=== PATIENT | female | born 1940 | race Caucasian/White ===

== ENCOUNTER 2024-04-04 19:01 | Inpatient (IN) ==
--- NOTE | 2024-04-04 21:01 | Emergency Department Note ---
Impression & Plan Closed fracture of pubic ramus, Fall, Ambulatory dysfunction ED Provider Note NAME: LETY FRANZ AGE: 84 SEX: F : 1940 ARRIVES VIA: Walk-In INFORMANT: Patient, Daughter ED PROVIDER(S): Earle Browning MD CHIEF COMPLAINT: Fall, ambulatory dysfunction MEDICAL DECISION MAKING: Patient presents with the above. Patient may have a pubic ring fracture based on x-ray. CT of the hip and pelvis were ordered. After discussion with the patient's family were at bedside she does not believe the patient go home at this time. IV was established and blood work is obtained along with a screening chest x-ray in light of the patient's cough and episode of vomiting last week. While the patient states that she did hit her head last week as the patient does not have any head or neck pain and the fall occurred 4 days ago believe less likely to have clinically significant ICH. No obvious deformity to the head indicative of any skull fracture. Patient blood work shows a normal white count hemoglobin and platelet count. The patient's kidney function unremarkable but with prerenal azotemia. Patient's hip and pelvis x-ray does show right superior pubic rami fracture. Chest x-ray does show some congestion and possible edema. Hip and pelvis CT do show superior pubic rami fracture. Given the concern for ambulatory dysfunction I did speak the on-call hospitalist Dr. Braun and the patient was admitted to the medicine service. I did message on-call orthopedist Dr. Desai to make him aware. Discussion w/ other healthcare providers: Dr. Braun inpatient medicine service Dr. Desai orthopedics Prior /Outside records reviewed: None Differential diagnosis: Fracture, dislocation, contusion, strain, sprain, ICH, hemothorax, intra- abdominal injury, anemia among other causes were considered. Diagnostics, as interpreted by me: ECG: Normal sinus rhythm, rate 73, wide QRS with bundle branch block pattern, no obvious Sgarbossa criteria. Cardiac monitoring: An order was placed for continuous cardiac monitoring. The monitor shows a rate of 77 with sinus rhythm. Patient was placed on pulse oximetry Medical decision rules: None Imaging studies: I informally interpreted the patient's right hip and pelvis x-ray shows pubic rami fracture with formal report to follow. HPI: Patient presents with daughter at bedside due to concerns for pain to the right hip and groin area. Patient reportedly had a fall last as she may have missed stepped while navigating around a chair and then fell to her right side. Patient was able to get up and ambulate thereafter but in the coming days the patient has had worsening ambulatory dysfunction where she has required a walker. Patient does take Eliquis. Patient was reportedly seen the prior week on [facility] Thursday due to concerns for choking episode and vomiting. The patient reportedly did have CT of the abdomen pelvis and did receive IV fluids. Patient was discharged home. Patient developed a cough about 2 days later and was placed on a Z-Eben by her PCP. Patient former smoker last moving about 2 years ago. Patient states that since the fall patient has taken some occasional Advil with improvement in her pain. Patient states that is primarily to the hip and groin area. Patient also has some occasional right- sided rib pain. Patient believes that she struck her head at the time of the fall but has had no changes in mentation no head or neck pain. Patient reportedly does take Eliquis for known history of PE. PAST MEDICAL HISTORY: See Below PAST SURGICAL HISTORY: See Below SOCIAL HISTORY: See Below HOME MEDICATIONS: See Below ALLERGIES: See Below VITALS: See Below PHYSICAL EXAMINATION: GENERAL: NAD, non-toxic. Wearing glasses. EYE EXAM: Normal conjunctiva. PERRL, no anisocoria and EOM's grossly intact w/o pain. OROPHARYNX: Moist mucus membranes, grossly normal dentition. NECK: Trachea midline, no stridor. No midline C-spine TTP. LUNGS: Clear to auscultation. Normal chest wall mechanics. Chest: Reproducible right mid clavicular lower rib pain without step-offs or bruising. HEART: NSR, no MRG. ABDOMEN: Abdomen soft, non-tender, no masses, no rebound or guarding. BACK: No CVA TTP. No midline thoracic or lumbar TTP. SKIN: No rashes and no bruising. UPPER EXTREMITIES: Upper extremities are grossly normal. No TTP or deformity. LOWER EXTREMITIES: Pain to palpation to the right groin and hip area, no knee pain or ankle pain. No leg length discrepancy, will complete perfused and compartments are soft throughout. No TTP of the left lower extremity. NEURO EXAM: A&O x3, cranial nerves II-XII grossly intact, normal speech, moves all 4 extremities. Past Med/Surg History Problem List (Updated 04/04/24 @ 23:32 by Earle Browning MD) Ambulatory dysfunction (Acute) Fall (Acute) Closed fracture of pubic ramus (Acute) Falls frequently Femur fracture, left Hx pulmonary embolism Thickened endometrium Gastric cancer Incontinence (Chronic) Social History Smoking Status: Current every day smoker Tobacco Type: Cigarettes Preferred Language: Syriac Feels Safe at Home: Yes Allergies Allergies Allergy/AdvReac Type Severity Reaction Status Date / Time No Known Drug Allergies Allergy Verified 12/17/23 12:46 Home Meds Home Medications Medication Instructions Recorded Confirmed mirabegron 50 mg tablet,extended 50 mg PO DAILY 11/20/23 04/04/24 release 24 hr apixaban 2.5 mg tablet (Eliquis) 2.5 mg PO DAILY 04/04/24 04/04/24 bupropion HCl 300 mg 24 hr tablet, 300 mg PO DAILY 04/04/24 04/04/24 extended release clopidogrel 75 mg tablet 75 mg PO DAILY 04/04/24 04/04/24 dapagliflozin propanediol 5 mg 5 mg PO DAILY 04/04/24 04/04/24 tablet (Farxiga) metoprolol succinate 25 mg 25 mg PO DAILY 04/04/24 04/04/24 tablet,extended release 24 hr mirtazapine 7.5 mg tablet 7.5 mg PO DAILY 04/04/24 04/04/24 pantoprazole 40 mg tablet,delayed 40 mg PO DAILY 04/04/24 04/04/24 release rosuvastatin 10 mg tablet 10 mg PO DAILY 04/04/24 04/04/24 sertraline 100 mg tablet 150 mg PO DAILY 04/04/24 04/04/24 tiotropium bromide 2.5 1 inh inhalation BID 04/04/24 04/04/24 mcg/actuation mist for inhalation (Spiriva Respimat) Results & Data (ED) Vital Signs Vital Signs - 24 hr 04/04/24 19:10 04/04/24 20:17 04/04/24 20:43 Temperature 36.5 C Temperature Source Temporal Artery Scan Pulse Rate 90 Pulse Rate [Apical] 78 78 Respiratory Rate 20 18 24 Respiratory Effort / Characteristics Non-Labored Respiratory Depth Normal Respiratory Pattern Regular Blood Pressure 122/78 Blood Pressure [Right Arm] 141/90 H 145/75 H Blood Pressure Mean 92 Blood Pressure Mean [Right Arm] 107 98 Pulse Oximetry 92 95 92 Oxygen Delivery Method Room Air Room Air Room Air Oxygen Flow Rate Sepsis Recent Fever Within 48 Hours No Sepsis New/Unexplained Change in Mental Status No Sepsis Action Taken by Nursing No Action Required 04/04/24 22:25 04/04/24 22:43 Temperature Temperature Source Pulse Rate 74 Pulse Rate [Apical] 80 Respiratory Rate Respiratory Effort / Characteristics Respiratory Depth Respiratory Pattern Blood Pressure Blood Pressure [Right Arm] 139/77 Blood Pressure Mean Blood Pressure Mean [Right Arm] 97 Pulse Oximetry 93 Oxygen Delivery Method Nasal Cannula Oxygen Flow Rate 2 Sepsis Recent Fever Within 48 Hours Sepsis New/Unexplained Change in Mental Status Sepsis Action Taken by [facility] Medications Current Medication List: was personally reviewed by me Laboratory Data Attestation: I reviewed the patient's lab results. 04/04/24 21:25 04/04/24 21:25 Lab Results 04/04/24 Range/Units 21:25 WBC 8.37 (4.8-10.8) K/ul RBC 3.92 L (4.20-5.40) M/uL Hgb 12.6 (12.0-16.0) g/dl Hct 38.1 (37.0-47.0) % MCV 97.2 (80.0-100.0) fL MCH 32.1 (25.0-34.0) pg MCHC 33.1 (32.0-36.0) g/dL RDW Std Deviation 50.8 H (36.4-46.3) fL RDW Coeff of Lilly 14.2 (11.5-14.5) % Plt Count 251 (130-400) K/uL MPV 10.2 (9.4-12.4) fL Immature Gran % (Auto) 0.6 % Neut % (Auto) 77.5 % Lymph % (Auto) 10.4 % Larue % (Auto) 9.7 % Eos % (Auto) 1.6 % Baso % (Auto) 0.2 % Neut # (Auto) 6.49 (1.40-6.50) K/uL Lymph # (Auto) 0.87 L (1.20-3.40) K/uL Larue # (Auto) 0.81 H (0.11-0.59) K/uL Eos # (Auto) 0.13 (0.00-0.50) K/uL Baso # (Auto) 0.02 (0.00-0.20) K/uL Immature Gran # (Auto) 0.05 (0.01-0.20) K/uL Sodium 141 (136-145) mmol/L Potassium 3.7 (3.5-5.1) mmol/L Chloride 105 (98-107) mmol/L Carbon Dioxide 29 (21-32) mmol/L Anion Gap 7 (3-11) BUN 25 H (6-23) mg/dl Creatinine 1.18 (0.6-1.2) mg/dl Est Cr Clr Drug Dosing Not Reportable eGFR 46.12 BUN/Creatinine Ratio 21.2 H (10-20) Glucose 96 (70-99(Fasting)) mg/dl Calcium 9.8 (8.6-10.3) mg/dl Magnesium 2.1 (1.7-2.4) mg/dl Total Bilirubin 0.5 (0.2-1.0) mg/dl AST 20 (13-39) U/L ALT 9 (7-52) U/L Alkaline Phosphatase 99 (34-104) U/L Total Protein 7.2 (6.0-8.3) gm/dl Albumin 3.9 (3.4-5.0) gm/dl Globulin 3.3 (2.5-4.0) gm/dl Albumin/Globulin Ratio 1.2 (0.9-2) TSH 1.940 (0.300-4.500) uIu/ml Administered Medications Discontinued Medications Acetaminophen (Ofirmev) 1,000 mg in 100 mls @ 400 mls/hr IV NOW STA Stop: 04/04/24 22:42 Last Admin: 04/04/24 22:40 Dose: 400 mls/hr Documented By: MED Morphine Sulfate (Morphine Sulfate 2 Mg/Ml Carp) 2 mg IV NOW STA Stop: 04/04/24 22:29 Last Admin: 04/04/24 22:36 Dose: 2 mg Documented By: MED Imaging Data Radiologist's Impression: Hip/Pelvis X-Ray 04/04/24 19:15 Exam(s): XR HIP + PELVIS, 2-3 views EXAM: XR Right Hip With Pelvis When Performed, 2 or 3 Views CLINICAL HISTORY: Reason for exam: fall, right hip pain. TECHNIQUE: Two or three views of the right hip with pelvis when performed. COMPARISON: No relevant prior studies available. FINDINGS: Bones/joints: Fracture of the right superior pubic ramus. Severe degenerative changes in the left hip. Moderate in the right. Postsurgical changes in the lumbar spine. IMPRESSION: Fracture of the right superior pubic ramus. Electronically signed by: Jesse Palacios MD 04/04/24 21:49 PM Chest X-Ray 04/04/24 20:47 Exam(s): XR CXR 1 VIEW EXAM: XR Chest, 1 View CLINICAL HISTORY: Reason for exam: weakness, cough. TECHNIQUE: Frontal view of the chest. COMPARISON: No relevant prior studies available. FINDINGS: Lungs: Pulmonary vascular congestion and septal thickening suggestive of interstitial edema. Pleural space: No pleural effusion. No pneumothorax. Heart: Unremarkable. No cardiomegaly. IMPRESSION: Pulmonary vascular congestion and septal thickening suggestive of interstitial edema. Electronically signed by: Jesse Palacios MD 04/04/24 21:[address] 04/04/24 20:47 Exam(s): CT RIGHT HIP Without Contrast EXAM: CT Right Lower Extremity Without Intravenous Contrast, Hip CLINICAL HISTORY: Reason for exam: hip/groin pain s/p fall. TECHNIQUE: Axial computed tomography images of the right hip without intravenous contrast. CTDI is 12.25 mGy and DLP is 325.24 mGy-cm. Automated exposure control was utilized for the study. A dose lowering technique was utilized adhering to the principles of ALARA. COMPARISON: No relevant prior studies available. FINDINGS: Bones/joints: Nondisplaced fracture of the right superior pubic ramus. No fracture of the femur. Moderate degenerative changes at the right hip. No dislocation. Soft tissues: Unremarkable. IMPRESSION: Nondisplaced fracture of the right superior pubic ramus. Electronically signed by: Jesse Palacios MD 04/04/24 22:[address] 04/04/24 20:47 Exam(s): CT PELVIS Without Contrast EXAM: CT Pelvis Without Intravenous Contrast CLINICAL HISTORY: Reason for exam: R hip/groin pain s/p fall. TECHNIQUE: Axial computed tomography images of the pelvis without intravenous contrast. CTDI is 12.25 mGy and DLP is 325.24 mGy-cm. Automated exposure control was utilized for the study. A dose lowering technique was utilized adhering to the principles of ALARA. COMPARISON: No relevant prior studies available. FINDINGS: Intraperitoneal space: Unremarkable. No free air. No significant fluid collection. Bladder: Unremarkable. Bones/joints: Nondisplaced fracture of the right superior pubic ramus. 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 Severe degenerative changes in the left hip. Moderate degenerative changes in the right hip. Degenerative changes in the lumbar spine. No dislocation. Soft tissues: No soft tissue hematoma. Vasculature: Atherosclerotic calcifications. Aortobiiliac stent grafting. IMPRESSION: 1. Nondisplaced fracture of the right superior pubic ramus. 2. 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 Electronically signed by: Jesse Palacios MD 04/04/24 22:04 PM Discharge Plan Visit Data Chief Complaint: Hip Pain Stated Complaint: FELL, RT SIDE, PAIN IN RT HIP AND GROIN ED Provider: Earle Browning Discharge Problem: Closed fracture of pubic ramus, Fall, Ambulatory dysfunction Forms Stand Alone Forms: [facility] Prescriptions Prescriptions: No Action mirabegron 50 mg tablet extended release 24 hr 50 mg PO DAILY sertraline 100 mg tablet 150 mg PO DAILY Spiriva Respimat 2.5 mcg/actuation mist 1 inh INHALATION BID Eliquis 2.5 mg tablet 2.5 mg PO DAILY dapagliflozin propanediol [Farxiga] 5 mg tablet 5 mg PO DAILY clopidogrel 75 mg tablet 75 mg PO DAILY pantoprazole 40 mg tablet,delayed release (DR/EC) 40 mg PO DAILY metoprolol succinate 25 mg tablet extended release 24 hr 25 mg PO DAILY rosuvastatin 10 mg tablet 10 mg PO DAILY bupropion HCl 300 mg tablet extended release 24 hr 300 mg PO DAILY mirtazapine 7.5 mg tablet 7.5 mg PO DAILY Referrals Referrals: Olga Pelletier, C.R.N.P [Primary Care Provider] - Discharge Problem: Closed fracture of pubic ramus Qualifiers: Encounter type: initial encounter Laterality: right Qualified Code(s): S32.591A - Other specified fracture of right pubis, initial encounter for closed fracture Fall Qualifiers: Encounter type: initial encounter Qualified Code(s): W19.XXXA - Unspecified fall, initial encounter
[2024-04-04 21:47] LABS: Basophils # (auto) 0.02 K/uL (0.00-0.20); Basophils % (auto) 0.2 %; Eosinophils # (auto) 0.13 K/uL (0.00-0.50); Eosinophils % (auto) 1.6 %; Hematocrit (blood only) 38.1 % (37.0-47.0); Hemoglobin 12.6 g/dl (12.0-16.0); Immature Granulocytes # (auto) 0.05 K/uL (0.01-0.20); Immature Granulocytes % (auto) 0.6 %; Lymphocytes # (auto) 0.87 K/uL (1.20-3.40); Lymphocytes % (auto) 10.4 %; Mean Corpuscular Hemoglobin 32.1 pg (25.0-34.0); Mean Corpuscular Hgb Conc 33.1 g/dL (32.0-36.0); Mean Corpuscular Volume 97.2 fL (80.0-100.0); Mean Platelet Volume 10.2 fL (9.4-12.4); Monocytes # (auto) 0.81 K/uL (0.11-0.59); Monocytes % (auto) 9.7 %; Neutrophils # (auto) 6.49 K/uL (1.40-6.50); Neutrophils % (auto) 77.5 %; Platelet Count 251 K/uL (130-400); RDW Coefficient of Variation 14.2 % (11.5-14.5); RDW Standard Deviation 50.8 fL (36.4-46.3); Red Blood Count 3.92 M/uL (4.20-5.40); White Blood Count 8.37 K/ul (4.8-10.8)
--- NOTE | 2024-04-04 21:50 | XRay Report ---
Exam(s): XR HIP + PELVIS, 2-3 views EXAM: XR Right Hip With Pelvis When Performed, 2 or 3 Views CLINICAL HISTORY: Reason for exam: fall, right hip pain. TECHNIQUE: Two or three views of the right hip with pelvis when performed. COMPARISON: No relevant prior studies available. FINDINGS: Bones/joints: Fracture of the right superior pubic ramus. Severe degenerative changes in the left hip. Moderate in the right. Postsurgical changes in the lumbar spine. IMPRESSION: Fracture of the right superior pubic ramus. Electronically signed by: Jesse Palacios MD 04/04/24 21:49 PM
--- NOTE | 2024-04-04 21:59 | XRay Report ---
Exam(s): XR CXR 1 VIEW EXAM: XR Chest, 1 View CLINICAL HISTORY: Reason for exam: weakness, cough. TECHNIQUE: Frontal view of the chest. COMPARISON: No relevant prior studies available. FINDINGS: Lungs: Pulmonary vascular congestion and septal thickening suggestive of interstitial edema. Pleural space: No pleural effusion. No pneumothorax. Heart: Unremarkable. No cardiomegaly. IMPRESSION: Pulmonary vascular congestion and septal thickening suggestive of interstitial edema. Electronically signed by: Jesse Palacios MD 04/04/24 21:58 PM
--- NOTE | 2024-04-04 22:05 | CT Scan Report ---
Exam(s): CT PELVIS Without Contrast EXAM: CT Pelvis Without Intravenous Contrast CLINICAL HISTORY: Reason for exam: R hip/groin pain s/p fall. TECHNIQUE: Axial computed tomography images of the pelvis without intravenous contrast. CTDI is 12.25 mGy and DLP is 325.24 mGy-cm. Automated exposure control was utilized for the study. A dose lowering technique was utilized adhering to the principles of ALARA. COMPARISON: No relevant prior studies available. FINDINGS: Intraperitoneal space: Unremarkable. No free air. No significant fluid collection. Bladder: Unremarkable. Bones/joints: Nondisplaced fracture of the right superior pubic ramus. 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 Severe degenerative changes in the left hip. Moderate degenerative changes in the right hip. Degenerative changes in the lumbar spine. No dislocation. Soft tissues: No soft tissue hematoma. Vasculature: Atherosclerotic calcifications. Aortobiiliac stent grafting. IMPRESSION: 1. Nondisplaced fracture of the right superior pubic ramus. 2. 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 Electronically signed by: Jesse Palacios MD 04/04/24 22:04 PM
--- NOTE | 2024-04-04 22:06 | CT Scan Report ---
Exam(s): CT RIGHT HIP Without Contrast EXAM: CT Right Lower Extremity Without Intravenous Contrast, Hip CLINICAL HISTORY: Reason for exam: hip/groin pain s/p fall. TECHNIQUE: Axial computed tomography images of the right hip without intravenous contrast. CTDI is 12.25 mGy and DLP is 325.24 mGy-cm. Automated exposure control was utilized for the study. A dose lowering technique was utilized adhering to the principles of ALARA. COMPARISON: No relevant prior studies available. FINDINGS: Bones/joints: Nondisplaced fracture of the right superior pubic ramus. No fracture of the femur. Moderate degenerative changes at the right hip. No dislocation. Soft tissues: Unremarkable. IMPRESSION: Nondisplaced fracture of the right superior pubic ramus. Electronically signed by: Jesse Palacios MD 04/04/24 22:05 PM
[2024-04-04 22:07] LABS: Alanine Aminotransferase 9 U/L (7-52); Albumin Globulin Ratio 1.2 (0.9-2); Albumin Level 3.9 gm/dl (3.4-5.0); Alkaline Phosphatase 99 U/L (34-104); Anion Gap 7 (3-11); Aspartate Aminotransferase 20 U/L (13-39); BUN Creatinine Ratio 21.2 (10-20); Bilirubin,Total 0.5 mg/dl (0.2-1.0); Blood Urea Nitrogen 25 mg/dl (6-23); Calcium 9.8 mg/dl (8.6-10.3); Carbon Dioxide 29 mmol/L (21-32); Chloride 105 mmol/L (98-107); Globulin 3.3 gm/dl (2.5-4.0); Glucose 96 mg/dl (70-99(Fasting)); Magnesium 2.1 mg/dl (1.7-2.4); Potassium 3.7 mmol/L (3.5-5.1); Sodium 141 mmol/L (136-145); Total Protein 7.2 gm/dl (6.0-8.3)
[2024-04-04] MEDS: MoRPHine SULFATE 2 MG/ML CARP IV STA (22:36)
[2024-04-04] MEDS: ACETAMINOPHEN 1,000 MG/100 ML VIAL IV STA (22:40)
--- NOTE | 2024-04-05 00:42 | History & Physical Report ---
Date of Service April 04, 2024 Assessment & Plan (1) Closed fracture of pubic ramus: Plan: 84yo female presenting after a fall at home approximately 4 days ago - ongoing right pelvic and hip pain with ambulatory dysfunction. Patient fount to have pubic ramus fracture. -Admit to medical -Pain control with Tylenol 1gm PO TID scheduled -Oxycodone 5mg po q 4 hours as needed -Morphine PRN -Orthopedic Surgery consultation appreciated -PT/OT evaluations appreciated -Senna daily -Miralax PRN -Zofran PRN (2) Ambulatory dysfunction: Plan: Secondary to pubic ramus fracture -Pain control -PT/OT evaluation Plan Chronic Medical Issues: Depression: -Continue Sertraline and Wellbutrin GERD -Continue Protonix History of Present Illness Chief Complaint: pelvic pain, hip pain Primary Care Provider: Olga Aguilar McMkee Shields is an 84yo female with history of PE presenting from home with pelvic and right hip pain. Patient's [id number] is at bedside and assists with history. Patient lives alone - ambulates with a walker. She falls frequently - most recently 4 days ago fell onto her right side. Patient has had ongoing severe pain with difficulty ambulating over the last several days. In the ER she is afebrile, HD stable Imaging as below with non-displaced fracture of the right superior pubic ramus as well as insufficiency changes int he left sacral ala. Patient expressed desire to go home tonight and does not want to stay in the hospital. [id number] is very concerned about patient's difficulty with ambulating and pain level. After discussion patient is agreeable to stay overnight for pain control, PT/OT evaluation with hopeful discharge home with services if appropriate. ER Course: Tylenol Morphine Allergies Allergy/AdvReac Type Severity Reaction Status Date / Time No Known Drug Allergies Allergy Verified 12/17/23 12:46 Home Medications Medication Instructions Recorded Confirmed Type mirabegron 50 mg tablet,extended 50 mg PO DAILY 11/20/23 04/04/24 History release 24 hr apixaban 2.5 mg tablet (Eliquis) 2.5 mg PO DAILY 04/04/24 04/04/24 History bupropion HCl 300 mg 24 hr tablet, 300 mg PO DAILY 04/04/24 04/04/24 History extended release clopidogrel 75 mg tablet 75 mg PO DAILY 04/04/24 04/04/24 History dapagliflozin propanediol 5 mg 5 mg PO DAILY 04/04/24 04/04/24 History tablet (Farxiga) metoprolol succinate 25 mg 25 mg PO DAILY 04/04/24 04/04/24 History tablet,extended release 24 hr mirtazapine 7.5 mg tablet 7.5 mg PO DAILY 04/04/24 04/04/24 History pantoprazole 40 mg tablet,delayed 40 mg PO DAILY 04/04/24 04/04/24 History release rosuvastatin 10 mg tablet 10 mg PO DAILY 04/04/24 04/04/24 History sertraline 100 mg tablet 150 mg PO DAILY 04/04/24 04/04/24 History tiotropium bromide 2.5 1 inh inhalation BID 04/04/24 04/04/24 History mcg/actuation mist for inhalation (Spiriva Respimat) Past Med/Surg History Problem List Ambulatory dysfunction (Acute) Fall (Acute) Closed fracture of pubic ramus (Acute) Falls frequently Femur fracture, left Hx pulmonary embolism Thickened endometrium Gastric cancer Incontinence (Chronic) Social History Smoking Status: Current every day smoker Tobacco Type: Cigarettes Preferred Language: Irish Feels Safe at Home: Yes Review of Systems Review of Systems: All systems reviewed & are unremarkable except as noted in HPI & below Physical Exam Physical Exam: General: patient resting comfortably, NAD, non-toxic in appearance, AA&O x 4 Skin: warm, dry, intact, no rashes or lesions HEENT: NC/AT, PERRL, EOMI, anicteric sclera, conjunctiva without injection, external ear normal to inspection and nontender, nares patent, moist mucus membranes, dentition intact, no oropharyngeal lesions, neck supple, trachea midline, no LAD, no thyromegaly, no JVD Heart: +S1/S2, regular, no m/r/g Lungs: equal air entry bilaterally, no rales/rhonchi/wheezes Abd: +BS, soft, NT/ND, no masses/organomegaly/ascites Ext: warm, 2+ pulses in UE/LE bilaterally, no clubbing/cyanosis or edema, pain in right hip and RLQ without rebound/guarding Neuro: nonfocal, patient AA&O x 4, speech intact, no facial droop, moving all extremities on command with equal strength 5/5 Results & Data Results & Data Vital Signs (Past 12 Hours) Vital Signs Temp Pulse Pulse Resp BP BP Pulse Ox 04/04/24 22:43 80 139/77 93 04/04/24 22:25 74 04/04/24 20:43 78 24 145/75 H 92 04/04/24 20:17 78 18 141/90 H 95 04/04/24 19:10 36.5 C 90 20 122/78 92 O2 Del Method O2 Flow Rate 04/04/24 22:43 Nasal Cannula 2 04/04/24 22:25 04/04/24 20:43 Room Air 04/04/24 20:17 Room Air 04/04/24 19:10 Room Air Laboratory Results Laboratory Results WBC 8.37 K/ul (4.8-10.8) 04/04/24: RBC 3.92 M/uL (4.20-5.40) L 04/04/24 21: Hgb 12.6 g/dl (12.0-16.0) 04/04/24: Hct 38.1 % (37.0-47.0) 04/04/24: MCV 97.2 fL (80.0-100.0) 04/04/24 21: MCH 32.1 pg (25.0-34.0) 04/04/24: MCHC 33.1 g/dL (32.0-36.0) 04/04/24: RDW Std Deviation 50.8 fL (36.4-46.3) H 04/04/24: RDW Coeff of Lilly 14.2 % (11.5-14.5) 04/04/24: Plt Count 251 K/uL (130-400) 04/04/24: MPV 10.2 fL (9.4-12.4) 04/04/24 21: Immature Gran % (Auto) 0.6 % 04/04/24: Neut % (Auto) 77.5 % 04/04/24: Lymph % (Auto) 10.4 % 04/04/24: [place] % (Auto) 9.7 % 04/04/24: Eos % (Auto) 1.6 % 04/04/24: Baso % (Auto) 0.2 % 04/04/24: Neut # (Auto) 6.49 K/uL (1.40-6.50) 04/04/24: Lymph # (Auto) 0.87 K/uL (1.20-3.40) L 04/04/24: [place] # (Auto) 0.81 K/uL (0.11-0.59) H 04/04/24: Eos # (Auto) 0.13 K/uL (0.00-0.50) 04/04/24: Baso # (Auto) 0.02 K/uL (0.00-0.20) 04/04/24: Immature Gran # (Auto) 0.05 K/uL (0.01-0.20) 04/04/24: Sodium 141 mmol/L (136-145) 04/04/24: Potassium 3.7 mmol/L (3.5-5.1) 04/04/24: Chloride 105 mmol/L (98-107) 04/04/24: Carbon Dioxide 29 mmol/L (21-32) 04/04/24: Anion Gap 7 (3-11) 04/04/24: BUN 25 mg/dl (6-23) H 04/04/24: Creatinine 1.18 mg/dl (0.6-1.2) 04/04/24: Est Cr Clr Drug Dosing Not Reportable 04/04/24: eGFR 46.12 04/04/24: BUN/Creatinine Ratio 21.2 (10-20) H 04/04/24: Glucose 96 mg/dl (70-99(Fasting)) 04/04/24: Calcium 9.8 mg/dl (8.6-10.3) 04/04/24: Magnesium 2.1 mg/dl (1.7-2.4) 04/04/24: Total Bilirubin 0.5 mg/dl (0.2-1.0) 04/04/24 21: AST 20 U/L (13-39) 04/04/24 21: ALT 9 U/L (7-52) 04/04/24 21: Alkaline Phosphatase 99 U/L (34-104) 04/04/24 21: Total Protein 7.2 gm/dl (6.0-8.3) 04/04/24: Albumin 3.9 gm/dl (3.4-5.0) 04/04/24: Globulin 3.3 gm/dl (2.5-4.0) 04/04/24: Albumin/Globulin Ratio 1.2 (0.9-2) 04/04/24: TSH 1.940 uIu/ml (0.300-4.500) 04/04/24 21: Impressions Hip/Pelvis X-Ray 04/04/24 19:15 Exam(s): XR HIP + PELVIS, 2-3 views EXAM: XR Right Hip With Pelvis When Performed, 2 or 3 Views CLINICAL HISTORY: Reason for exam: fall, right hip pain. TECHNIQUE: Two or three views of the right hip with pelvis when performed. COMPARISON: No relevant prior studies available. FINDINGS: Bones/joints: Fracture of the right superior pubic ramus. Severe degenerative changes in the left hip. Moderate in the right. Postsurgical changes in the lumbar spine. IMPRESSION: Fracture of the right superior pubic ramus. Electronically signed by: Jesse Palacios MD 04/04/24 21:49 PM Chest X-Ray 04/04/24 20:47 Exam(s): XR CXR 1 VIEW EXAM: XR Chest, 1 View CLINICAL HISTORY: Reason for exam: weakness, cough. TECHNIQUE: Frontal view of the chest. COMPARISON: No relevant prior studies available. FINDINGS: Lungs: Pulmonary vascular congestion and septal thickening suggestive of interstitial edema. Pleural space: No pleural effusion. No pneumothorax. Heart: Unremarkable. No cardiomegaly. IMPRESSION: Pulmonary vascular congestion and septal thickening suggestive of interstitial edema. Electronically signed by: Jesse Palacios MD 04/04/24 21:[address] 04/04/24 20:47 Exam(s): CT RIGHT HIP Without Contrast EXAM: CT Right Lower Extremity Without Intravenous Contrast, Hip CLINICAL HISTORY: Reason for exam: hip/groin pain s/p fall. TECHNIQUE: Axial computed tomography images of the right hip without intravenous contrast. CTDI is 12.25 mGy and DLP is 325.24 mGy-cm. Automated exposure control was utilized for the study. A dose lowering technique was utilized adhering to the principles of ALARA. COMPARISON: No relevant prior studies available. FINDINGS: Bones/joints: Nondisplaced fracture of the right superior pubic ramus. No fracture of the femur. Moderate degenerative changes at the right hip. No dislocation. Soft tissues: Unremarkable. IMPRESSION: Nondisplaced fracture of the right superior pubic ramus. Electronically signed by: Jesse Palacios MD 04/04/24 22:[address] 04/04/24 20:47 Exam(s): CT PELVIS Without Contrast EXAM: CT Pelvis Without Intravenous Contrast CLINICAL HISTORY: Reason for exam: R hip/groin pain s/p fall. TECHNIQUE: Axial computed tomography images of the pelvis without intravenous contrast. CTDI is 12.25 mGy and DLP is 325.24 mGy-cm. Automated exposure control was utilized for the study. A dose lowering technique was utilized adhering to the principles of ALARA. COMPARISON: No relevant prior studies available. FINDINGS: Intraperitoneal space: Unremarkable. No free air. No significant fluid collection. Bladder: Unremarkable. Bones/joints: Nondisplaced fracture of the right superior pubic ramus. 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 Severe degenerative changes in the left hip. Moderate degenerative changes in the right hip. Degenerative changes in the lumbar spine. No dislocation. Soft tissues: No soft tissue hematoma. Vasculature: Atherosclerotic calcifications. Aortobiiliac stent grafting. IMPRESSION: 1. Nondisplaced fracture of the right superior pubic ramus. 2. 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 Electronically signed by: Jesse Palacios MD 04/04/24 22:04 PM ECG Additional Comments: EKG with NSR at 73bpm, normal axis, LBBB present (was present on prior EKG 11/20/23) PG Care Time/CCT Total # of Minutes Spent Total Time Spent with Patient: Total time spent is greater than 50% in coordination of care (as documented) at patient's floor/unit and/or counseling patient: Coding Level of Care Code 01608 INT INP/OBS CARE 2/55MIN Diagnoses Closed fracture of pubic ramus S32.591A Encounter type: initial encounter Laterality: right Ambulatory dysfunction R26.2 (1) Closed fracture of pubic ramus Encounter type: initial encounter Laterality: right Qualified Code(s): S32.591A - Other specified fracture of right pubis, initial encounter for closed fracture
[2024-04-05] MEDS ORDERED: POLYETHYLENE (MIRALAX) 17 GM PACK PO PRN (01:49)
[2024-04-05] MEDS ORDERED: ONDANSETRON INJ 2 MG/ML 2 ML VIAL IV PRN (01:49)
--- NOTE | 2024-04-05 08:51 | Orthopedic Consultation ---
Date of Consultation April 05, 2024 Assessment & Plan (1) Closed fracture of pubic ramus: (2) Ambulatory dysfunction: (3) Fall: (4) Falls frequently: (5) Hx pulmonary embolism: Plan Chitra is an 84-year-old female presents to the hospital for ambulatory dysfunction after a fall that occurred about 4 days ago. The patient notes that she has been able to walk over the last 4 days but it has been painful. Most of her pain is located in the right hemipelvis. At baseline, the patient ambulates about her home with the use of a walker. Imaging findings do demonstrate a right superior pubic ramus fracture and sacral insufficiency fracture consistent with an LC 1 injury pattern. I had a long discussion with the patient regarding the nature of this diagnosis. We discussed in great detail the pathoanatomy, pathophysiology, treatment options. I did discuss with her that on review of her imaging, the only acute fractures that I can appreciate are in the pelvis and there is no acute fracture of the right proximal femur. Based on the injury pattern, I do believe this patient's pelvis is stable for weightbearing as tolerated. Would have her use pain as her guide and use the assistance of a walker/PT. I did explain to the patient that she may require placement in a rehab facility, however she was not excited about this. Would recommend PT/OT. Weightbearing as tolerated. Patient can follow-up with me in 2-3 weeks for repeat x-rays. If the patient is unable to ambulate or bear any weight with physical therapy, I would recommend repeating her x-rays to ensure there is no occult nondisplaced fracture specifically of the right hip. History of Present Illness Reason for Consultation: Pubic ramus fracture Requesting Physician: Dr. Browning Attending Physician: Neto Saldana MD History of Present Illness Patient is an 84yo female with history of PE presenting from home with pelvic and right hip pain. Patient lives alone - ambulates with a walker. She falls frequently - most recently 4 days ago fell onto her right side. Patient has had ongoing pain with difficulty ambulating over the last several days. In the ER she was afebrile and hemodynamically stable Imaging demonstrated minimally displaced fracture of the right superior pubic ramus as well as insufficiency changes of the sacral ala. patient resting comfortably in bed this morning eating breakfast. She has not yet worked with physical therapy. Notes that since the fall 4 days ago she has been able to ambulate but it has been painful. Most of her pain is in the right hemipelvis. Allergies Allergy/AdvReac Type Severity Reaction Status Date / Time No Known Drug Allergies Allergy Verified 12/17/23 12:46 Home Medications Medication Instructions Recorded Confirmed Type mirabegron 50 mg tablet,extended 50 mg PO DAILY 11/20/23 04/04/24 History release 24 hr apixaban 2.5 mg tablet (Eliquis) 2.5 mg PO BID 04/04/24 04/05/24 History bupropion HCl 300 mg 24 hr tablet, 300 mg PO DAILY 04/04/24 04/04/24 History extended release clopidogrel 75 mg tablet 75 mg PO DAILY 04/04/24 04/04/24 History dapagliflozin propanediol 5 mg 5 mg PO DAILY 04/04/24 04/04/24 History tablet (Farxiga) metoprolol succinate 25 mg 25 mg PO DAILY 04/04/24 04/04/24 History tablet,extended release 24 hr mirtazapine 7.5 mg tablet 7.5 mg PO DAILY 04/04/24 04/04/24 History pantoprazole 40 mg tablet,delayed 40 mg PO DAILY 04/04/24 04/04/24 History release rosuvastatin 10 mg tablet 10 mg PO DAILY 04/04/24 04/04/24 History sertraline 100 mg tablet 150 mg PO DAILY 04/04/24 04/04/24 History tiotropium bromide 2.5 1 inh inhalation BID 04/04/24 04/04/24 History mcg/actuation mist for inhalation (Spiriva Respimat) Patient History Social History Smoking Status: Former smoker Tobacco Type: Cigarettes Cigarettes Per Day: 6-7; Second Hand Exposure: No; Do You Dip or Chew Tobacco: No; Hx Alcohol Use: Yes Alcohol type: beer and hard liquor Hx Substance Use: No Preferred Language: Fijian Communication Ability: Effective Smash Fixer Required: No Beliefs That Will Affect Care: Restorationism Restorationism Beliefs: Rastafarian. Current Living Situation: Family Current Living Situation Comment: Lives with Son and Bszjtbeg-[id number]-bbf. Feels Safe at Home: Yes Assistive Devices: Denture - Upper, Glasses, Hospital Bed, Oxygen - at Night, Oxygen - Continuous and Walker Review of Systems Review of Systems: All systems reviewed & are unremarkable except as noted in HPI & below Physical Exam Physical Exam: On physical examination, the patient is tender palpation over her right superior pubic ramus. She has minimal pain with logroll and no pain with heel strike. She demonstrates intact EHL/FHL/GSC/TA. Station tact light touch L2- S1. Results & Data Vital Signs (Past 12 Hours) Vital Signs Temp Pulse Pulse Pulse Resp BP BP 04/05/24 07:22 36.3 C L 75 16 117/72 04/05/24 01:40 04/05/24 01:40 36.3 C L 74 16 129/61 04/05/24 01:40 04/05/24 01:40 36.3 C L 74 16 129/61 04/05/24 01:05 65 18 04/05/24 00:35 67 18 134/74 04/04/24 22:43 80 04/04/24 22:25 74 BP Pulse Ox O2 Del Method O2 Flow Rate 04/05/24 07:22 93 Nasal Cannula 2 04/05/24 01:40 Nasal Cannula 2 04/05/24 01:40 94 Nasal Cannula 2 04/05/24 01:40 Nasal Cannula 2 04/05/24 01:40 94 Nasal Cannula 2 04/05/24 01:05 97 Nasal Cannula 2 04/05/24 00:35 96 Nasal Cannula 2 04/04/24 22:43 139/77 93 Nasal Cannula 2 04/04/24 22:25 Diagnostic Findings X-rays of the right hip and pelvis as well as CT scan of the right hip and pelvis were personally interpreted and reviewed. These demonstrate a fracture of the superior pubic ramus on the right without noted fracture of the right proximal femur. There is a sacral insufficiency fracture, as well (1) Closed fracture of pubic ramus Encounter type: initial encounter Laterality: right Qualified Code(s): S32.591A - Other specified fracture of right pubis, initial encounter for closed fracture (3) Fall Encounter type: initial encounter Qualified Code(s): W19.XXXA - Unspecified fall, initial encounter
[2024-04-05] MEDS: PANTOprazole 40 MG TAB PO SCH (09:22)
[2024-04-05] MEDS: ACETAMINOPHEN 500 MG TAB PO SCH (09:22)
[2024-04-05] MEDS: SERTRALINE HCL 50 MG TABLET PO SCH (09:23)
[2024-04-05] MEDS: ROSUVASTATIN CALCIUM 10 MG TAB PO SCH (09:23)
[2024-04-05] MEDS: MoRPHine SULFATE 2 MG/ML CARP IV PRN (09:26)
[2024-04-05] MEDS: UMECLIDINIUM BROMIDE 62.5MCG/BLISTER 7 PUFFS/INHALER INH SCH (09:42)
[2024-04-05] MEDS: buPROPion XL 300 MG TABCR PO SCH (09:43)
[2024-04-05] MEDS: CLOPIDOGREL BISULFATE 75 MG TAB PO SCH (09:43)
[2024-04-05] MEDS: APIXABAN 2.5 MG TAB PO SCH (09:43)
[2024-04-05] MEDS: METOPROLOL SUCC 25MG EXT REL TAB PO SCH (09:44)
[2024-04-05] MEDS: DOCUSATE SODIUM/SENNA 50/8.6MG TAB PO SCH (09:46)
--- NOTE | 2024-04-05 10:31 | Electrocardiogram Report ---
Test Reason : Blood Pressure : */* mmHG Vent. Rate : 73 BPM Atrial Rate : 73 BPM P-R Int : 158 ms QRS Dur : 130 ms QT Int : 464 ms P-R-T Axes : 84 4 101 degrees QTcB Int : 511 ms Normal sinus rhythm Left bundle branch block Abnormal ECG When compared with ECG of 20-Nov-2023 16:22, Premature ventricular complexes are no longer Present Left bundle branch block is now Present Minimal criteria for Anterior infarct are no longer Present Confirmed by Jb Rod ([id number]) on 04/05/2024 10:31:02 AM Referred By: REFERRED SELF Confirmed By: Jb Rod
[2024-04-05] MEDS: MIRTAZAPINE TAB 15 MG TAB PO SCH (21:07)
--- NOTE | 2024-04-06 10:28 | Hospitalist Progress Note ---
Date of Service April 06, 2024 Assessment & Plan (1) Closed fracture of pubic ramus: Plan: -Pain control with Tylenol 1gm PO TID scheduled -Oxycodone 5mg po q 4 hours as needed -Morphine PRN -Orthopedic Surgery consultation appreciated -no procedure needed -PT/OT evaluations appreciated -Senna daily -Miralax PRN -Zofran PRN (2) Ambulatory dysfunction: Plan: Secondary to pubic ramus fracture -Pain control -PT/OT evaluation -Patient will need rehab placement -case management aware Plan Chronic Medical Issues: Depression: -Continue Sertraline and Wellbutrin GERD -Continue Protonix Admission and Anticipated Discharge Date Admission Date: April 04, 2024 Subjective No events overnight. Pt resting in bed eating breakfast. Review of Systems Review of Systems: CONST: Negative for fever, body aches and chills. HENT: Negative for neck pain/stiffness, headache, congestion, sore throat, swelling. EYES: Negative for discharge/pain or vision changes. RESP: Negative for cough/hemoptysis and shortness of breath. CV: Negative chest pain, difficulty breathing, palpitations. ABD: Negative pain, nausea, vomiting. : Negative increase frequency, dysuria, blood in urine or stool. MUSC: Negative for muscle aches, edema. SKIN: Negative rash, lesions/sores. NEURO: Negative headache, dizziness, weakness. Physical Exam Physical Exam: GENERAL APPEARANCE NAD, activity normal for age, well developed/ well nourished, no cyanosis, pallor, or diaphoresis. EYES lids/conjunctiva normal. EARS/NOSE/THROAT Mucous membranes moist, nares normal, lips/teeth normal uvula midline without oral pharyngeal erythema, exudate or swelling TMs normal bilaterally. No lymphangitis/lymphedema. HEAD/NECK normocephalic atraumatic, no facial trauma, neck is supple. RESPIRATORY respiratory effort normal, speaks in full sentences, no tripod position, no accessory muscle use. Lungs clear to auscultation without rhonchi, wheezes, rales CARDIAC Regular rate and rhythm, no edema. ABDOMINAL Soft, ND/NT. No evidence of fluid wave. No pulsatile masses on exam, rebound tenderness, Otero sign or pain over Mcburney's point. MUSCLES/EXTREMITIES No abnormal range of motion, no swelling. SKIN Warm, pink and dry. No rashes, dermatoses, petechiae or lesions. NEUROLOGICAL Speech is clear and appropriate. Normal level of consciousness. Gait and coordination are normal. 5/5 strength in all extremities. PSYCH Normal mood and affect. Judgement/competence is appropriate Results & Data Results & Data Vital Signs (Past 12 Hours) Vital Signs Temp Pulse Resp BP Pulse Ox O2 Del Method O2 Flow Rate 04/06/24 07:54 36.4 C L 56 L 16 113/61 96 Nasal Cannula 2 PG Care Time/CCT Total # of Minutes Spent Total Time Spent with Patient: Total time spent is greater than 50% in coordination of care (as documented) at patient's floor/unit and/or counseling patient: Coding Level of Care Code 93674 SUB INP/OBS CARE 2/35MIN Diagnoses Closed fracture of pubic ramus S32.591A Encounter type: initial encounter Laterality: right Ambulatory dysfunction R26.2 (1) Closed fracture of pubic ramus Encounter type: initial encounter Laterality: right Qualified Code(s): S32.591A - Other specified fracture of right pubis, initial encounter for closed fracture
[2024-04-07] MEDS: oxyCODONE HCL IR 5 MG TAB (IMMEDIATE RELEASE) PO PRN (06:02)
--- NOTE | 2024-04-07 11:39 | Hospitalist Progress Note ---
Date of Service April 07, 2024 Assessment & Plan (1) Closed fracture of pubic ramus: Plan: -Pain control with Tylenol 1gm PO TID scheduled -Oxycodone 5mg po q 4 hours as needed -Morphine PRN -Orthopedic Surgery consultation appreciated -no procedure needed -PT/OT evaluations appreciated -Senna daily -Miralax PRN -Zofran PRN (2) Ambulatory dysfunction: Plan: Secondary to pubic ramus fracture -Pain control -PT/OT evaluation -Patient will need rehab placement -case management aware Plan Chronic Medical Issues: Depression: -Continue Sertraline and Wellbutrin GERD -Continue Protonix Admission and Anticipated Discharge Date Admission Date: April 04, 2024 Subjective No events overnight. Pt resting in bed eating breakfast. Review of Systems Review of Systems: CONST: Negative for fever, body aches and chills. HENT: Negative for neck pain/stiffness, headache, congestion, sore throat, swelling. EYES: Negative for discharge/pain or vision changes. RESP: Negative for cough/hemoptysis and shortness of breath. CV: Negative chest pain, difficulty breathing, palpitations. ABD: Negative pain, nausea, vomiting. : Negative increase frequency, dysuria, blood in urine or stool. MUSC: Negative for muscle aches, edema. SKIN: Negative rash, lesions/sores. NEURO: Negative headache, dizziness, weakness. Physical Exam Physical Exam: GENERAL APPEARANCE NAD, activity normal for age, well developed/ well nourished, no cyanosis, pallor, or diaphoresis. EYES lids/conjunctiva normal. EARS/NOSE/THROAT Mucous membranes moist, nares normal, lips/teeth normal uvula midline without oral pharyngeal erythema, exudate or swelling TMs normal bilaterally. No lymphangitis/lymphedema. HEAD/NECK normocephalic atraumatic, no facial trauma, neck is supple. RESPIRATORY respiratory effort normal, speaks in full sentences, no tripod position, no accessory muscle use. Lungs clear to auscultation without rhonchi, wheezes, rales CARDIAC Regular rate and rhythm, no edema. ABDOMINAL Soft, ND/NT. No evidence of fluid wave. No pulsatile masses on exam, rebound tenderness, Otero sign or pain over Mcburney's point. MUSCLES/EXTREMITIES No abnormal range of motion, no swelling. SKIN Warm, pink and dry. No rashes, dermatoses, petechiae or lesions. NEUROLOGICAL Speech is clear and appropriate. Normal level of consciousness. Gait and coordination are normal. 5/5 strength in all extremities. PSYCH Normal mood and affect. Judgement/competence is appropriate Results & Data Results & Data Vital Signs (Past 12 Hours) Vital Signs Temp Pulse Resp BP Pulse Ox O2 Del Method O2 Flow Rate 04/07/24 08:23 72 04/07/24 08:00 Nasal Cannula 2 04/07/24 07:27 36.2 C L 59 L 17 106/67 93 Nasal Cannula 2 PG Care Time/CCT Total # of Minutes Spent Total Time Spent with Patient: Total time spent is greater than 50% in coordination of care (as documented) at patient's floor/unit and/or counseling patient: Coding Level of Care Code 91214 SUB INP/OBS CARE 2/35MIN Diagnoses Closed fracture of pubic ramus S32.591A Encounter type: initial encounter Laterality: right Ambulatory dysfunction R26.2 (1) Closed fracture of pubic ramus Encounter type: initial encounter Laterality: right Qualified Code(s): S32.591A - Other specified fracture of right pubis, initial encounter for closed fracture
--- NOTE | 2024-04-08 13:55 | Hospitalist Progress Note ---
Date of Service April 08, 2024 Assessment & Plan (1) Closed fracture of pubic ramus: Plan: -Pain control with Tylenol 1gm PO TID scheduled -Oxycodone 5mg po q 4 hours as needed -Morphine PRN -Orthopedic Surgery consultation appreciated -no procedure needed -PT/OT evaluations appreciated -Senna daily -Miralax PRN -Zofran PRN (2) Ambulatory dysfunction: Plan: Secondary to pubic ramus fracture -Pain control -PT/OT evaluation -Patient will need rehab placement -case management aware Plan Chronic Medical Issues: Depression: -Continue Sertraline and Wellbutrin GERD -Continue Protonix Admission and Anticipated Discharge Date Admission Date: April 04, 2024 Subjective No events overnight. Pt resting in bed eating breakfast. Review of Systems Review of Systems: CONST: Negative for fever, body aches and chills. HENT: Negative for neck pain/stiffness, headache, congestion, sore throat, swelling. EYES: Negative for discharge/pain or vision changes. RESP: Negative for cough/hemoptysis and shortness of breath. CV: Negative chest pain, difficulty breathing, palpitations. ABD: Negative pain, nausea, vomiting. : Negative increase frequency, dysuria, blood in urine or stool. MUSC: Negative for muscle aches, edema. SKIN: Negative rash, lesions/sores. NEURO: Negative headache, dizziness, weakness. Physical Exam Physical Exam: GENERAL APPEARANCE NAD, activity normal for age, well developed/ well nourished, no cyanosis, pallor, or diaphoresis. EYES lids/conjunctiva normal. EARS/NOSE/THROAT Mucous membranes moist, nares normal, lips/teeth normal uvula midline without oral pharyngeal erythema, exudate or swelling TMs normal bilaterally. No lymphangitis/lymphedema. HEAD/NECK normocephalic atraumatic, no facial trauma, neck is supple. RESPIRATORY respiratory effort normal, speaks in full sentences, no tripod position, no accessory muscle use. Lungs clear to auscultation without rhonchi, wheezes, rales CARDIAC Regular rate and rhythm, no edema. ABDOMINAL Soft, ND/NT. No evidence of fluid wave. No pulsatile masses on exam, rebound tenderness, Otero sign or pain over Mcburney's point. MUSCLES/EXTREMITIES No abnormal range of motion, no swelling. SKIN Warm, pink and dry. No rashes, dermatoses, petechiae or lesions. NEUROLOGICAL Speech is clear and appropriate. Normal level of consciousness. Gait and coordination are normal. 5/5 strength in all extremities. PSYCH Normal mood and affect. Judgement/competence is appropriate Results & Data Results & Data Vital Signs (Past 12 Hours) Vital Signs Temp Pulse Resp BP Pulse Ox O2 Del Method O2 Flow Rate 04/08/24 08:27 36.5 C 63 18 120/72 93 Nasal Cannula 2 PG Care Time/CCT Total # of Minutes Spent Total Time Spent with Patient: Total time spent is greater than 50% in coordination of care (as documented) at patient's floor/unit and/or counseling patient: Coding Level of Care Code 35066 SUB INP/OBS CARE 2/35MIN Diagnoses Closed fracture of pubic ramus S32.591A Encounter type: initial encounter Laterality: right Ambulatory dysfunction R26.2 (1) Closed fracture of pubic ramus Encounter type: initial encounter Laterality: right Qualified Code(s): S32.591A - Other specified fracture of right pubis, initial encounter for closed fracture
--- NOTE | 2024-04-09 10:55 | Hospitalist Progress Note ---
Date of Service April 09, 2024 Assessment & Plan (1) Closed fracture of pubic ramus: Plan: -Pain control with Tylenol 1gm PO TID scheduled -Oxycodone 5mg po q 4 hours as needed -Morphine PRN -Orthopedic Surgery consultation appreciated -no procedure needed -PT/OT evaluations appreciated -Senna daily -Miralax PRN -Zofran PRN (2) Ambulatory dysfunction: Plan: Secondary to pubic ramus fracture -Pain control -PT/OT evaluation -Patient will need rehab placement -case management aware Plan Chronic Medical Issues: Depression: -Continue Sertraline and Wellbutrin GERD -Continue Protonix Awaiting rehab placement Admission and Anticipated Discharge Date Admission Date: April 04, 2024 Subjective No events overnight. Pt resting in bed eating breakfast. Review of Systems Review of Systems: CONST: Negative for fever, body aches and chills. HENT: Negative for neck pain/stiffness, headache, congestion, sore throat, swelling. EYES: Negative for discharge/pain or vision changes. RESP: Negative for cough/hemoptysis and shortness of breath. CV: Negative chest pain, difficulty breathing, palpitations. ABD: Negative pain, nausea, vomiting. : Negative increase frequency, dysuria, blood in urine or stool. MUSC: Negative for muscle aches, edema. SKIN: Negative rash, lesions/sores. NEURO: Negative headache, dizziness, weakness. Physical Exam Physical Exam: GENERAL APPEARANCE NAD, activity normal for age, well developed/ well nourished, no cyanosis, pallor, or diaphoresis. EYES lids/conjunctiva normal. EARS/NOSE/THROAT Mucous membranes moist, nares normal, lips/teeth normal uvula midline without oral pharyngeal erythema, exudate or swelling TMs normal bilaterally. No lymphangitis/lymphedema. HEAD/NECK normocephalic atraumatic, no facial trauma, neck is supple. RESPIRATORY respiratory effort normal, speaks in full sentences, no tripod position, no accessory muscle use. Lungs clear to auscultation without rhonchi, wheezes, rales CARDIAC Regular rate and rhythm, no edema. ABDOMINAL Soft, ND/NT. No evidence of fluid wave. No pulsatile masses on exam, rebound tenderness, Otero sign or pain over Mcburney's point. MUSCLES/EXTREMITIES No abnormal range of motion, no swelling. SKIN Warm, pink and dry. No rashes, dermatoses, petechiae or lesions. NEUROLOGICAL Speech is clear and appropriate. Normal level of consciousness. Gait and coordination are normal. 5/5 strength in all extremities. PSYCH Normal mood and affect. Judgement/competence is appropriate Results & Data Results & Data Vital Signs (Past 12 Hours) Vital Signs Temp Pulse Resp BP Pulse Ox O2 Del Method O2 Flow Rate 04/09/24 08:10 Nasal Cannula 2 04/09/24 07:43 36.6 C 53 L 16 118/65 96 Room Air PG Care Time/CCT Total # of Minutes Spent Total Time Spent with Patient: Total time spent is greater than 50% in coordination of care (as documented) at patient's floor/unit and/or counseling patient: Coding Level of Care Code 21961 SUB INP/OBS CARE 2/35MIN Diagnoses Closed fracture of pubic ramus S32.591A Encounter type: initial encounter Laterality: right Ambulatory dysfunction R26.2 (1) Closed fracture of pubic ramus Encounter type: initial encounter Laterality: right Qualified Code(s): S32.591A - Other specified fracture of right pubis, initial encounter for closed fracture
--- NOTE | 2024-04-10 13:58 | Hospitalist Progress Note ---
Date of Service April 10, 2024 Assessment & Plan (1) Closed fracture of pubic ramus: Plan: -Pain control with Tylenol 1gm PO TID scheduled -Oxycodone 5mg po q 4 hours as needed -Morphine PRN -Orthopedic Surgery consultation appreciated -no procedure needed -PT/OT evaluations appreciated -Senna daily -Miralax PRN -Zofran PRN (2) Ambulatory dysfunction: Plan: Secondary to pubic ramus fracture -Pain control -PT/OT evaluation -Patient awaiting rehab placement -case management aware Plan Chronic Medical Issues: Depression: -Continue Sertraline and Wellbutrin GERD -Continue Protonix Awaiting rehab placement Admission and Anticipated Discharge Date Admission Date: April 04, 2024 Subjective No events overnight. Pt resting in bed eating breakfast. Review of Systems Review of Systems: CONST: Negative for fever, body aches and chills. HENT: Negative for neck pain/stiffness, headache, congestion, sore throat, swelling. EYES: Negative for discharge/pain or vision changes. RESP: Negative for cough/hemoptysis and shortness of breath. CV: Negative chest pain, difficulty breathing, palpitations. ABD: Negative pain, nausea, vomiting. : Negative increase frequency, dysuria, blood in urine or stool. MUSC: Negative for muscle aches, edema. SKIN: Negative rash, lesions/sores. NEURO: Negative headache, dizziness, weakness. Physical Exam Physical Exam: GENERAL APPEARANCE NAD, activity normal for age, well developed/ well nourished, no cyanosis, pallor, or diaphoresis. EYES lids/conjunctiva normal. EARS/NOSE/THROAT Mucous membranes moist, nares normal, lips/teeth normal uvula midline without oral pharyngeal erythema, exudate or swelling TMs normal bilaterally. No lymphangitis/lymphedema. HEAD/NECK normocephalic atraumatic, no facial trauma, neck is supple. RESPIRATORY respiratory effort normal, speaks in full sentences, no tripod position, no accessory muscle use. Lungs clear to auscultation without rhonchi, wheezes, rales CARDIAC Regular rate and rhythm, no edema. ABDOMINAL Soft, ND/NT. No evidence of fluid wave. No pulsatile masses on exam, rebound tenderness, Otero sign or pain over Mcburney's point. MUSCLES/EXTREMITIES No abnormal range of motion, no swelling. SKIN Warm, pink and dry. No rashes, dermatoses, petechiae or lesions. NEUROLOGICAL Speech is clear and appropriate. Normal level of consciousness. Gait and coordination are normal. 5/5 strength in all extremities. PSYCH Normal mood and affect. Judgement/competence is appropriate Results & Data Results & Data Vital Signs (Past 12 Hours) Vital Signs Temp Pulse Resp BP Pulse Ox O2 Del Method O2 Flow Rate 04/10/24 08:45 Nasal Cannula 2 04/10/24 07:26 36.8 C 58 L 16 150/67 H 94 Nasal Cannula 2 PG Care Time/CCT Total # of Minutes Spent Total Time Spent with Patient: Total time spent is greater than 50% in coordination of care (as documented) at patient's floor/unit and/or counseling patient: Coding Level of Care Code 52342 SUB INP/OBS CARE 2/35MIN Diagnoses Closed fracture of pubic ramus S32.591A Encounter type: initial encounter Laterality: right Ambulatory dysfunction R26.2 (1) Closed fracture of pubic ramus Encounter type: initial encounter Laterality: right Qualified Code(s): S32.591A - Other specified fracture of right pubis, initial encounter for closed fracture
--- NOTE | 2024-04-11 16:46 | Hospitalist Progress Note ---
Date of Service April 11, 2024 Assessment & Plan (1) Closed fracture of pubic ramus: Plan: Patient presented to the ED on 04/05 after a fall 4 days [employer] and was still experiencing pelvic and right hip pain. Pelvic/right hip CT 04/04 - nondisplaced fx of right superior pubic ramus. 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 PT/OT weight bear as tolerated. Follow up in 2- 3 weeks outpatient for repeat x-rays. Tylenol 1g PO TID scheduled Oxycodone 5mg PO q4h prn. Senna daily, Miralax prn Zofran prn PT/OT recommending rehab. (2) Ambulatory dysfunction: Plan: as above Plan Chronic Medical Issues: Depression -Continue Sertraline and Wellbutrin GERD -Continue Protonix Code: DNR/DNI DVT prophylaxis: Eliquis Patient stable for discharge pending placement. CM following. Admission and Anticipated Discharge Date Admission Date: April 04, 2024 Supervising Physician Co-Signing Physician Notes chart reviewed, case d/w K Krystal BEYER. as above Subjective Patient seen and examined this morning. Patient complains of pain this morning in her pelvic area but denies any additional complaints. She is currently awaiting placement. Physical Exam Constitutional: WD/WN, vitals as above Eyes: PERRL, conjunctivae normal, anicteric sclerae Respiratory: breathing unlabored, on 2L o2 Cardiovascular: well perfused Psychiatric: A+Ox3, euthymic affect Results & Data Results & Data Vital Signs (Past 12 Hours) Vital Signs Temp Pulse Pulse Resp BP BP Pulse Ox 04/11/24 14:18 36.7 C 61 18 117/69 97 04/11/24 13:38 36.8 C 75 15 126/70 93 04/11/24 09:55 04/11/24 07:37 36.7 C 71 15 111/63 96 O2 Del Method O2 Flow Rate 04/11/24 14:18 Nasal Cannula 2 04/11/24 13:38 Nasal Cannula 04/11/24 09:55 Nasal Cannula 2 04/11/24 07:37 Nasal Cannula 2 PG Care Time/CCT Total # of Minutes Spent Total Time Spent with Patient: Total time spent is greater than 50% in coordination of care (as documented) at patient's floor/unit and/or counseling patient: Coding Level of Care Code 08352 SUB INP/OBS CARE 03/12MIN Diagnoses Closed fracture of pubic ramus S32.591A Encounter type: initial encounter Laterality: right Ambulatory dysfunction R26.2 (1) Closed fracture of pubic ramus Encounter type: initial encounter Laterality: right Qualified Code(s): S32.591A - Other specified fracture of right pubis, initial encounter for closed fracture
[2024-04-11 18:50] LABS: Appearance Urine Clear (Clear); Bilirubin Urine Negative (Negative); Blood Urine Negative (Negative); Color Urine Yellow; Glucose Urine UA Negative (Negative); Ketones Urine Negative (Negative); Leukocyte Esterase Urine Negative (Negative); Nitrite Urine Negative (Negative); Protein Urine Negative (Negative); Specific Gravity Urine 1.023 (1.000-1.030); Urobilinogen Urine Negative (Negative); pH Urine 5.5 (4.5-7.5)
[2024-04-12] MEDS: CALCIUM CARBONATE 500 MG CHEWABLE TAB PO PRN (07:57)
--- NOTE | 2024-04-12 19:35 | Hospitalist Progress Note ---
Date of Service April 12, 2024 Assessment & Plan (1) Closed fracture of pubic ramus: Plan: Patient presented to the ED on 04/05 after a fall 4 days [employer] and was still experiencing pelvic and right hip pain. Pelvic/right hip CT 04/04 - nondisplaced fx of right superior pubic ramus. 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 PT/OT weight bear as tolerated. Follow up in 2- 3 weeks outpatient for repeat x-rays. Tylenol 1g PO TID scheduled Oxycodone 5mg PO q4h prn. Senna daily, Miralax prn Zofran prn Will trial melatonin HS for sleep aid PT/OT recommending rehab, waiting placement (2) Ambulatory dysfunction: Plan: as above Plan Chronic Medical Issues: Depression -Continue Sertraline and Wellbutrin GERD -Continue Protonix Code: DNR/DNI DVT prophylaxis: Eliquis Dispo: Patient stable for discharge pending placement. CM following. Admission and Anticipated Discharge Date Admission Date: April 04, 2024 Supervising Physician Co-Signing Physician Notes chart reviewed, case d/w S Ari BEYER. as above Subjective Patient seen evaluated bedside. She reports some right hip discomfort, but notes that her pain is controlled with medication. She reports regular bowel movements, no urinary symptoms, and good appetite. She notes some difficulty sleeping at night. We discussed trying melatonin HS, she is agreeable. No additional complaints or concerns at this time. Physical Exam Physical Exam: General: No acute distress, nondiaphoretic. Cardiac: Well-perfused. Rates in 60s. Pulm: Normal respiratory effort. 96% on 2 L nasal cannula. Neuro: A&O x3. No focal neurological deficits. Results & Data Results & Data Vital Signs (Past 12 Hours) Vital Signs Temp Pulse Resp BP Pulse Ox O2 Del Method O2 Flow Rate 04/12/24 15:37 131/75 04/12/24 15:07 97.9 F 63 16 102/49 L 96 Nasal Cannula 04/12/24 09:00 78 126/76 04/12/24 08:00 Nasal Cannula 2 FiO2 04/12/24 15:37 04/12/24 15:07 2 04/12/24 09:00 04/12/24 08:00 PG Care Time/CCT Total # of Minutes Spent Total Time Spent with Patient: Total time spent is greater than 50% in coordination of care (as documented) at patient's floor/unit and/or counseling patient: Coding Level of Care Code 15363 SUB INP/OBS CARE 03/12MIN Diagnoses Closed fracture of pubic ramus S32.591A Encounter type: initial encounter Laterality: right Ambulatory dysfunction R26.2 (1) Closed fracture of pubic ramus Encounter type: initial encounter Laterality: right Qualified Code(s): S32.591A - Other specified fracture of right pubis, initial encounter for closed fracture
[2024-04-12] MEDS: MELATONIN 3 MG TAB PO SCH (20:10)
--- NOTE | 2024-04-13 17:19 | Hospitalist Progress Note ---
Date of Service April 13, 2024 Assessment & Plan (1) Closed fracture of pubic ramus: Plan: Patient presented to the ED on 04/05 after a fall 4 days [employer] and was still experiencing pelvic and right hip pain. Pelvic/right hip CT 04/04 - nondisplaced fx of right superior pubic ramus. 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 PT/OT weight bear as tolerated. Follow up in 2- 3 weeks outpatient for repeat x-rays. Tylenol 1g PO TID scheduled Oxycodone 5mg PO q4h prn. Senna daily, Miralax prn Zofran prn Melatonin 3 mg HS PT/OT recommending rehab, waiting placement (2) Ambulatory dysfunction: Plan: as above Plan Chronic Medical Issues: Depression -Continue Sertraline and Wellbutrin GERD -Continue Protonix Hx of PE -Continue Eliquis and Plavix Code: DNR/DNI DVT prophylaxis: Eliquis Dispo: Patient stable for discharge pending placement. [facility] bed, pending insurance authorization. Anticipate discharge 04/14 Admission and Anticipated Discharge Date Admission Date: April 04, 2024 Supervising Physician Co-Signing Physician Notes chart reviewed, case d/w S Ari BEYER. as above Subjective Patient seen and evaluated at bedside. She continues to endorse some right pelvic discomfort but notes her pain regimen keeps the pain well-controlled. She notes that her appetite is good, regular bowel movements, and she slept well last night. She would like to continue taking melatonin while inpatient. She confirms that she wears supplemental O2 intermittently at home and reports her breathing feels the same as her baseline. She denies any respiratory symptoms at this time. No additional complaints or concerns at this time. Continue to wait for rehab placement. Physical Exam Physical Exam: General: No acute distress, nondiaphoretic. Cardiac: Well-perfused. Rates in 60s. Pulm: Normal respiratory effort. 95% on room air. Neuro: A&O x3. No focal neurological deficits. Results & Data Results & Data Vital Signs (Past 12 Hours) Vital Signs Temp Pulse Resp BP Pulse Ox O2 Del Method 04/13/24 14:54 97.9 F 63 16 112/69 95 Room Air 04/13/24 09:00 Room Air 02/26/25 08:06 97.7 F 112 H 18 138/77 96 Room Air PG Care Time/CCT Total # of Minutes Spent Total Time Spent with Patient: Total time spent is greater than 50% in coordination of care (as documented) at patient's floor/unit and/or counseling patient: Coding Level of Care Code 47726 SUB INP/OBS CARE 03/12MIN Diagnoses Closed fracture of pubic ramus S32.591A Encounter type: initial encounter Laterality: right Ambulatory dysfunction R26.2 (1) Closed fracture of pubic ramus Encounter type: initial encounter Laterality: right Qualified Code(s): S32.591A - Other specified fracture of right pubis, initial encounter for closed fracture
--- NOTE | 2024-04-14 16:37 | Hospitalist Progress Note ---
Date of Service April 14, 2024 Assessment & Plan (1) Closed fracture of pubic ramus: Plan: Patient presented to the ED on 04/05 after a fall 4 days [employer] and was still experiencing pelvic and right hip pain. Pelvic/right hip CT 04/04 - nondisplaced fx of right superior pubic ramus. 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 PT/OT weight bear as tolerated. Follow up in 2- 3 weeks outpatient for repeat x-rays. Tylenol 1g PO TID scheduled Oxycodone 5mg PO q4h prn. Senna daily, Miralax prn Zofran prn Melatonin 3 mg HS PT/OT recommended rehab - P2P completed 04/14 and denial upheld. Patient is unsafe to return home at this time. (2) Ambulatory dysfunction: Plan: as above Plan Chronic Medical Issues: Depression -Continue Sertraline and Wellbutrin GERD -Continue Protonix Hx of PE -Continue Eliquis and Plavix Code: DNR/DNI DVT prophylaxis: Eliquis Dispo: Patient stable for discharge pending placement. She is unsafe to return home at this time. P2P completed for rehab placement and denied. Continuing to work on discharge disposition with case management and family. Discussed discharge planning with case management Updated daughter via phone call Admission and Anticipated Discharge Date Admission Date: April 04, 2024 Supervising Physician Co-Signing Physician Notes chart reviewed, case d/w Abena Chapman PA-C. as above Subjective Patient seen and evaluated in bedside chair. She continues to endorse right hip/pelvic discomfort, but states her pain is controlled with Tylenol. We discussed that unfortunately she was denied for rehab placement. Will call daughter this evening to discuss further options. No additional complaints or concerns at this time. Physical Exam Physical Exam: General: No acute distress, nondiaphoretic. Frail elderly female. Sitting in bedside chair. Cardiac: Well-perfused. Rates in 60s. Pulm: Normal respiratory effort. 96% on 2 L NC. Neuro: A&O x3. No focal neurological deficits. Results & Data Results & Data Vital Signs (Past 12 Hours) Vital Signs Temp Pulse Resp BP Pulse Ox O2 Del Method O2 Flow Rate 04/14/24 15:46 Nasal Cannula 2 04/14/24 14:38 97.5 F L 59 L 17 106/61 96 Nasal Cannula 2 04/14/24 08:30 Nasal Cannula 2 04/14/24 07:37 97.5 F L 63 17 120/76 95 Nasal Cannula 2 PG Care Time/CCT Total # of Minutes Spent Total Time Spent with Patient: Total time spent is greater than 50% in coordination of care (as documented) at patient's floor/unit and/or counseling patient: Coding Level of Care Code 07469 SUB INP/OBS CARE 2/35MIN Diagnoses Closed fracture of pubic ramus S32.591A Encounter type: initial encounter Laterality: right Ambulatory dysfunction R26.2 (1) Closed fracture of pubic ramus Encounter type: initial encounter Laterality: right Qualified Code(s): S32.591A - Other specified fracture of right pubis, initial encounter for closed fracture
[2024-04-14] MEDS: KETOROLAC TROMETHAMINE 15 MG/ML VIAL IV ONE (20:03)
--- NOTE | 2024-04-15 17:39 | Hospitalist Progress Note ---
Date of Service April 15, 2024 Assessment & Plan (1) Closed fracture of pubic ramus: Plan: Patient presented to the ED on 04/05 after a fall 4 days [employer] and was still experiencing pelvic and right hip pain. Pelvic/right hip CT 04/04 - nondisplaced fx of right superior pubic ramus. 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 PT/OT weight bear as tolerated. Follow up in 2- 3 weeks outpatient for repeat x-rays. Tylenol 1g PO TID scheduled Oxycodone 5mg PO q4h prn. Senna daily, Miralax prn Zofran prn Melatonin 3 mg HS PT/OT recommended rehab - P2P completed 04/14 and denial upheld. Patient becoming more independent in room/bathroom now (2) Ambulatory dysfunction: Plan: as above Plan Chronic Medical Issues: Depression -Continue Sertraline and Wellbutrin GERD -Continue Protonix Hx of PE -Continue Eliquis and Plavix Code: DNR/DNI DVT prophylaxis: Eliquis Dispo: Patient stable for discharge when plan in place for home/placement. P2P completed for rehab placement and denied. Continuing to work on discharge disposition with case management and family. Discussed discharge planning with case management -- per convo with daughter, they are debating home with caregivers vs [facility] Admission and Anticipated Discharge Date Admission Date: April 04, 2024 Supervising Physician Co-Signing Physician Notes chart reviewed, case d/w S Ari BEYER. as above Subjective Patient seen and evaluated at bedside. She reports feeling sore from "overworking it with therapy yesterday." Otherwise denies any acute complaints or concerns at this time. Per RN, she ambulates around the room and tends to herself in the bathroom independently. Physical Exam Physical Exam: General: No acute distress, nondiaphoretic. Frail elderly female. Cardiac: Well-perfused. Rates in 60s. Pulm: Normal respiratory effort. 96% on 2 L NC. Neuro: A&O x3. No focal neurological deficits. Results & Data Results & Data Vital Signs (Past 12 Hours) Vital Signs Temp Pulse Resp BP Pulse Ox O2 Del Method O2 Flow Rate 04/15/24 14:47 97.5 F L 56 L 16 106/57 L 96 Room Air 2 04/15/24 08:05 Nasal Cannula 2 04/15/24 07:09 98.1 F 59 L 18 115/56 L 95 Nasal Cannula 2 PG Care Time/CCT Total # of Minutes Spent Total Time Spent with Patient: Total time spent is greater than 50% in coordination of care (as documented) at patient's floor/unit and/or counseling patient: Coding Level of Care Code 30335 SUB INP/OBS CARE 2/35MIN Diagnoses Closed fracture of pubic ramus S32.591A Encounter type: initial encounter Laterality: right Ambulatory dysfunction R26.2 (1) Closed fracture of pubic ramus Encounter type: initial encounter Laterality: right Qualified Code(s): S32.591A - Other specified fracture of right pubis, initial encounter for closed fracture
--- NOTE | 2024-04-16 13:16 | Hospitalist Progress Note ---
Date of Service April 16, 2024 Assessment & Plan (1) Closed fracture of pubic ramus: Plan: Patient presented to the ED on 04/05 after a fall 4 days [employer] and was still experiencing pelvic and right hip pain. Pelvic/right hip CT 04/04 - nondisplaced fx of right superior pubic ramus. 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 PT/OT weight bear as tolerated. Follow up in 2- 3 weeks outpatient for repeat x-rays. Tylenol 1g PO TID scheduled Oxycodone 5mg PO q4h prn. Senna daily, Miralax prn Zofran prn Melatonin 3 mg HS PT/OT initially recommended rehab - P2P completed 04/14 and denial upheld. However, patient now independent in room/bathroom, progressing well with PT/OT Plan for home health on discharge (2) Ambulatory dysfunction: Plan: as above Plan Chronic Medical Issues: Depression -Continue Sertraline and Wellbutrin GERD -Continue Protonix Hx of PE -Continue Eliquis and Plavix Code: DNR/DNI DVT prophylaxis: Eliquis Dispo: Plan for patient to return home with home health services on discharge. Anticipate dc 04/17/24 Admission and Anticipated Discharge Date Admission Date: April 04, 2024 Subjective Patient seen and evaluated at bedside. She denies any acute complaints or concerns at this time. She continues to have some pelvic/right hip discomfort, but states this is controlled with Tylenol and she tries to avoid utilizing oxycodone. We discussed her disposition from the hospital, and Joselin reports that she feels safe to go home but does not want her son/iccywohq-ml-ckz to be worried about her. Encouraged to use life alert at home. She reports using her walker for longer distances or if she feels tired. RN reports she is independent in the room, bathroom, and with changing clothes. Observed patient ambulate around room well. Physical Exam Physical Exam: General: No acute distress, nondiaphoretic. Frail elderly female. Cardiac: Well-perfused. Rates in 60s. Pulm: Normal respiratory effort. 95% on 2 L NC. Neuro: A&O x3. No focal neurological deficits. Results & Data Results & Data Vital Signs (Past 12 Hours) Vital Signs Temp Pulse BP Pulse Ox O2 Del Method O2 Flow Rate 04/16/24 08:21 97.7 F 66 124/68 95 Nasal Cannula 2 04/16/24 07:30 Nasal Cannula 2 PG Care Time/CCT Total # of Minutes Spent Total Time Spent with Patient: Total time spent is greater than 50% in coordination of care (as documented) at patient's floor/unit and/or counseling patient: Coding Level of Care Code 01236 SUB INP/OBS CARE 03/12MIN Diagnoses Closed fracture of pubic ramus S32.591A Encounter type: initial encounter Laterality: right Ambulatory dysfunction R26.2 (1) Closed fracture of pubic ramus Encounter type: initial encounter Laterality: right Qualified Code(s): S32.591A - Other specified fracture of right pubis, initial encounter for closed fracture
[2024-04-16 16:10] VITALS: RESP 16
[2024-04-16 19:47] VITALS: TEMP 97.9; O2SAT 97
[2024-04-17 07:36] VITALS: BP 109/59
[2024-04-17 09:15] VITALS: PULSE 72
--- NOTE | 2024-04-17 16:35 | Discharge Summary ---
Discharge Summary Date of Service April 17, 2024 Principal Dx & Hospital Course #1 = Principal Diagnosis (1) Closed fracture of pubic ramus: Patient presented to the ED on 04/05 after a fall 4 days [employer] and was still experiencing pelvic and right hip pain. Pelvic/right hip CT 04/04 - nondisplaced fx of right superior pubic ramus. 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 PT/OT weight bear as tolerated. Follow up in 1-2 weeks outpatient for repeat x-rays. Continue to use rolling walker with ambulation Pain regimen: Tylenol 1g PO TID, Oxycodone 5mg PO q4h prn breakthrough/severe pain Recommend bowel regimen to prevent constipation, either Senna or MiraLAX Joselin progressed well with PT/OT throughout her hospital stay. She became independent in room and bathroom, and walked >400 feet with therapy. P2P was co mpleted for rehab placement, but denial was upheld. Family wanted patient placed, but she is not a SNF candidate currently. Case management and hospitalist discussed various options at length with patient's [id number]. Unfortunately [facility] not an option due to finances. Joselin was set up with home health RN, PT, OT, aide on discharge. Confirmed with family she has a rolling walker at home. (2) Ambulatory dysfunction: Improved Plan Chronic Medical Issues: Depression -Continue Sertraline and Wellbutrin GERD -Continue Protonix Hx of PE -Continue Eliquis and Plavix Code: DNR/DNI DVT prophylaxis: Eliquis Dispo: Discharged home with home health services 04/17/24. Notes For Next Care Provider Recommend follow-up with ortho in 1-2 weeks for repeat imaging of hip/pelvis Patient was set up with home health services on discharge (RN, PT, OT, aide). She progressed well throughout her hospital stay. Admission HPI Per Admitting Provider Chitra Shields is an 84yo female with history of PE presenting from home with pelvic and right hip pain. Patient's [id number]-[id number] is at bedside and assists with history. Patient lives alone - ambulates with a walker. She falls frequently - most recently 4 days ago fell onto her right side. Patient has had ongoing severe pain with difficulty ambulating over the last several days. In the ER she is afebrile, HD stable Imaging as below with non-displaced fracture of the right superior pubic ramus as well as insufficiency changes int he left sacral ala. Patient expressed desire to go home tonight and does not want to stay in the hospital. Qranrjlb-xl-tam is very concerned about patient's difficulty with ambulating and pain level. After discussion patient is agreeable to stay overnight for pain control, PT/OT evaluation with hopeful discharge home with services if appropriate. ER Course: Tylenol Morphine Discharge Exam General: No acute distress, nondiaphoretic. Frail elderly female. Cardiac: Well-perfused. Rates in 60s. Pulm: Normal respiratory effort. 97% on 2 L NC. Neuro: A&O x3. No focal neurological deficits. Discharge Plan Discharge Items Patient Disposition: Home - Home Health Services Reason For Visit: FALL, PUBIC RAMI FX, AMBULATORY DYSFUNCTION Discharge Diagnosis: Pubic rami fracture Activity: Resume your previous activity Non-emergency contact: Primary Care Provider Call non-emergency contact if: you have any medication questions and your pain is not controlled Follow-up/Referrals: Olga Pelletier, C.R.N.P [Primary Care Provider] - (Follow-up in 1-2 weeks) Peter Desai DO [Surgeon] - (Follow-up in 1-2 weeks for repeat x-rays.) Diet: Regular Addtl Attending Provider Instructions: Joselin, You were admitted to the hospital after a fall resulted in a fracture of your pelvis. This is the cause of your lingering right hip/pelvic discomfort. Your pain has been controlled on oral pain medicines. You worked with physical and occupational therapy and are now strong enough to return home with home health. Your case finishing machine adjuster has coordinated home health nursing, PT, OT, and an aide for you at home. Upon discharge from the hospital: * Take Tylenol 1,000 mg every 8 hours as needed for pain. Use this as your first-line medicine. * Take oxycodone 5 mg every 6 hours NEEDED for breakthrough/severe pain. Do not drive while taking oxycodone as it is a narcotic pain medication. * Continue a bowel regimen to prevent constipation. I recommend MiraLAX or Senna - both available [id number]. * Continue to use your rolling walker. * Follow-up with the orthopedic team outpatient for repeat x-rays. * Follow-up with your PCP in 1-2 weeks. It was a pleasure taking care of you while you were in the hospital! Pending Studies at Discharge: No Stand-Alone Forms: My [facility], Pain - Opioid Pain Management, Smoking Cessation Medications and DC Order Prescriptions: New oxycodone 5 mg tablet 5 mg PO Q6H PRN (Reason: breakthrough pain) Qty: 10 0RF oxycodone 5 mg tablet 5 mg PO Q6H PRN (Reason: pain) Qty: 10 0RF Continued mirabegron 50 mg tablet extended release 24 hr 50 mg PO DAILY sertraline 100 mg tablet 150 mg PO DAILY Spiriva Respimat 2.5 mcg/actuation mist 1 inh INHALATION BID Eliquis 2.5 mg tablet 2.5 mg PO BID dapagliflozin propanediol [Farxiga] 5 mg tablet 5 mg PO DAILY clopidogrel 75 mg tablet 75 mg PO DAILY pantoprazole 40 mg tablet,delayed release (DR/EC) 40 mg PO DAILY metoprolol succinate 25 mg tablet extended release 24 hr 25 mg PO DAILY rosuvastatin 10 mg tablet 10 mg PO DAILY bupropion HCl 300 mg tablet extended release 24 hr 300 mg PO DAILY mirtazapine 7.5 mg tablet 7.5 mg PO DAILY Discharge Orders: Discharge Order (Routine); Ordered 04/17/24 Ordered By: Dena Wilcox/Other Patient Handouts: Fall Prevention Assessing Risk Admission Data Admit Date/Time: 04/04/24 22:54 Attending Provider: Dandre Hauser Admit Provider: Chitra Braun Primary Care Provider: Olga Pelletier Other Providers: Peter Desai; Chitra Braun; [facility]; IRB Approved Study,Geri; [facility] Other Interventions: Discharge Summary Assessment (RN) Last Done: 04/17/24 10:08 Hospital Stay Data Consultations 04/04/24 22:08 ED Decision to Admit Stat 04/04/24 22:54 Consult Orthopedic Surgery Routine Diagnostic Imagining Performed 04/04/24 20:47 CT hip RT wo con Stat CT pelvis wo con Stat Pending Results Patient Have Any Pending Studies at Discharge: No Discharge Instructions Given to Patient (Per Discharging Provider) Joselin Henrik were admitted to the hospital after a fall resulted in a fracture of your pelvis. This is the cause of your lingering right hip/pelvic discomfort. Your pain has been controlled on oral pain medicines. You worked with physical and occupational therapy and are now strong enough to return home with home health. Your case finishing machine adjuster has coordinated home health nursing, PT, OT, and an aide for you at home. Upon discharge from the hospital: * Take Tylenol 1,000 mg every 8 hours as needed for pain. Use this as your first-line medicine. * Take oxycodone 5 mg every 6 hours NEEDED for breakthrough/severe pain. Do not drive while taking oxycodone as it is a narcotic pain medication. * Continue a bowel regimen to prevent constipation. I recommend MiraLAX or Senna - both available [id number]. * Continue to use your rolling walker. * Follow-up with the orthopedic team outpatient for repeat x-rays. * Follow-up with your PCP in 1-2 weeks. It was a pleasure taking care of you while you were in the hospital! Total Time Total Time Spent Total Time Spent (In Minutes): Greater than 30 minutes spent completing this discharge process including direct patient care, medication reconciliation, documentation, review of labs and images, and coordination of care. Coding Level of Care Code 33824 INP/OBS DISCH >30 MIN Diagnoses Closed fracture of pubic ramus S32.591A Encounter type: initial encounter Laterality: right Ambulatory dysfunction R26.2
== END 2024-04-17 12:17 | disposition home health service (06) | DRG 536 ==
LOC: ED 19:01 → SUATTDRO 22:54 → 3N 22:54 → 3W 04-08 10:24